=== PATIENT | female | born 1980 | race Caucasian/White ===

== ENCOUNTER 2017-05-21 10:11 | Inpatient (IN) | payer OTHER ==
[~2017-05-21] VITALS: Ht 149.9 cm; Wt 70.8 kg
[2017-05-21] MEDS ORDERED: RINGERS SOLUTION,LACTATED 1,000 ML IV PRN (10:28)
[2017-05-21] MEDS ORDERED: CITRIC ACID/SODIUM CITRATE 30 ML SOLUTION UDCUP PO PRN (10:30)
[2017-05-21] MEDS ORDERED: METOCLOPRAMIDE HCL 5 MG/ML 2 ML VIAL IVP PRN (10:30)
[2017-05-21] MEDS ORDERED: FentaNYL CITRATE-PF 100 MCG/2 ML VIAL IVP PRN (10:30)
[2017-05-21] MEDS ORDERED: PREN1TAB80 PO (10:32)
[2017-05-21 10:58] VITALS: BP 130/86
[2017-05-21 11:45] LABS: BASOPHILS # (AUTO) 0.03 K/uL (0.00-0.20); BASOPHILS % (AUTO) 0.3 % (0.0-2.0); EOSINOPHILS # (AUTO) 0.13 K/uL (0.00-0.70); EOSINOPHILS % (AUTO) 1.33 % (1.0-6.0); HEMATOCRIT 36.7 % (36-46); HEMOGLOBIN 12.7 g/dL (12.0-16.0); LYMPHOCYTES # (AUTO) 1.6 K/uL (1.0-4.8); LYMPHOCYTES % (AUTO) 16.4 % (22.0-44.0); MEAN CORPUSCULAR HEMOGLOBIN 27.6 pg (26.0-34.0); MEAN CORPUSCULAR HGB CONC 34.5 G/dL (31.0-37.0); MEAN CORPUSCULAR VOLUME 80 fL (80-100); MONOCYTES # (AUTO) 0.7 K/uL (0.1-1.0); MONOCYTES % (AUTO) 6.7 % (2.0-9.0); NEUTROPHILS # (AUTO) 7.5 K/uL (1.8-7.7); NEUTROPHILS % (AUTO) 75.3 % (40.0-70.0); RED BLOOD CELL COUNT(AUTO) 4.59 MIL/uL (4.00-5.20); RED CELL DISTRIBUTION WIDTH 13.6 % (11.5-14.5)
[2017-05-21] MEDS ORDERED: INFLUENZA VIRUS VACCINE QVS 2017-18 (3YR+)/PF 60 MCG/0.5 ML SYRINGE IM ONE (11:45)
[2017-05-21] MEDS ORDERED: MISOPROSTOL 25 MCG TABLET VG ONE (12:00)
[2017-05-21] MEDS ORDERED: OXYTOCIN 30 UNITS/LACT RINGERS 500 ML IV PRN (12:00)
[2017-05-21] MEDS: RINGERS SOLUTION,LACTATED 1,000 ML IV SCH ×2 (12:12→20:03)
[2017-05-21 12:38] LABS: PLATELET COUNT (AUTO)-OB 39 K/uL (150-450)
[2017-05-21 12:59] LABS: HEMATOCRIT 36.3 % (36-46); HEMOGLOBIN 12.4 g/dL (12.0-16.0); MEAN CORPUSCULAR HEMOGLOBIN 27.9 pg (26.0-34.0); MEAN CORPUSCULAR HGB CONC 34.1 G/dL (31.0-37.0); MEAN CORPUSCULAR VOLUME 82 fL (80-100); RED BLOOD CELL COUNT(AUTO) 4.43 MIL/uL (4.00-5.20)
[2017-05-21 13:06] LABS: PLATELET COUNT (AUTO)-OB 41 K/uL (150-450)
[2017-05-21] MEDS ORDERED: METHYLPREDNISOLONE SOD SUCC IV SCH (14:15)
[2017-05-21] MEDS ORDERED: SODIUM CHLORIDE 0.9% IV SCH (14:15)
[2017-05-21] MEDS ORDERED: DEXAMETHASONE 4 MG TABLET PO ONE (15:00)
[2017-05-21 16:58] LABS: ANION GAP 10 mmol/L (8-16); CALCIUM, TOTAL 8.3 mg/dL (8.8-10.5); CARBON DIOXIDE 22 mmol/L (22-29); CHLORIDE 102 mmol/L (98-107); CREATININE 0.51 mg/dL (0.60-1.30); GLOMERULAR FILTR. RATE CALC > 60 mL/min (>60); GLUCOSE,RANDOM 73 mg/dL (70-110); POTASSIUM 4.4 mmol/L (3.5-5.1); SODIUM SERUM 134 mmol/L (136-145); UREA NITROGEN, BLOOD 10 mg/dL (7-18)
[2017-05-21 17:05] LABS: ALANINE AMINOTRANSFERASE 670 U/L (12-78); ALBUMIN 1.9 g/dL (3.4-5.0); ALKALINE PHOSPHATASE 285 U/L (46-116); ASPARTATE AMINOTRANSFERASE 402 U/L (15-37); BILIRUBIN,TOTAL 2.7 mg/dL (0.1-1.0); TOTAL PROTEIN, SERUM 6.4 g/dL (6.4-8.2); URIC ACID 3.9 mg/dL (2.6-7.2)
[2017-05-21 19:00] LABS: BASOPHILS % (AUTO) 0.2 % (0.0-2.0); EOSINOPHILS % (AUTO) 0.4 % (1.0-6.0); HEMATOCRIT 41.2 % (36-46); HEMOGLOBIN 13.9 g/dL (12.0-16.0); LYMPHOCYTES # (AUTO) 1.2 K/uL (1.0-4.8); LYMPHOCYTES % (AUTO) 11.9 % (22.0-44.0); MEAN CORPUSCULAR HEMOGLOBIN 27.8 pg (26.0-34.0); MEAN CORPUSCULAR HGB CONC 33.7 G/dL (31.0-37.0); MEAN CORPUSCULAR VOLUME 82 fL (80-100); MONOCYTES # (AUTO) 0.2 K/uL (0.1-1.0); NEUTROPHILS # (AUTO) 8.8 K/uL (1.8-7.7); RED CELL DISTRIBUTION WIDTH 13.4 % (11.5-14.5)
[2017-05-21 19:08] LABS: PLATELET COUNT (AUTO)-OB 49 K/uL (150-450)
[2017-05-21 19:09] LABS: NEUTROPHILS % (AUTO) 85.5 % (40.0-70.0)
[2017-05-21 19:10] LABS: ANION GAP 12 mmol/L (8-16); CALCIUM, TOTAL 8.8 mg/dL (8.8-10.5); CARBON DIOXIDE 21 mmol/L (22-29); CHLORIDE 102 mmol/L (98-107); CREATININE 0.51 mg/dL (0.60-1.30); GLOMERULAR FILTR. RATE CALC > 60 mL/min (>60); GLUCOSE,RANDOM 77 mg/dL (70-110); POTASSIUM 4.6 mmol/L (3.5-5.1); SODIUM SERUM 135 mmol/L (136-145); UREA NITROGEN, BLOOD 10 mg/dL (7-18)
[2017-05-21 19:16] LABS: ALANINE AMINOTRANSFERASE 712 U/L (12-78); ALKALINE PHOSPHATASE 313 U/L (46-116); ASPARTATE AMINOTRANSFERASE 397 U/L (15-37); BILIRUBIN,TOTAL 3.1 mg/dL (0.1-1.0)
[2017-05-21] MEDS ORDERED: MAGNESIUM SULFATE 500 ML IV SCH (19:35)
[2017-05-21] MEDS ORDERED: CALCIUM GLUCONATE 100 MG/ML 10 ML IVP PRN (19:45)
[2017-05-21] MEDS ORDERED: MAGNESIUM SULFATE 4 GM/WATER 100 ML IV ONE (19:45)
[2017-05-21] MEDS ORDERED: OXYGEN THERAPY IH SCH (20:00)
[2017-05-21] MEDS ORDERED: BUTORPHANOL TARTRATE 2 MG/ML VIAL IVP PRN (20:15)
[2017-05-21] MEDS: NALBUPHINE HCL 10 MG/ML VIAL IVP PRN ×2 (20:43→23:44)
[2017-05-21 20:49] LABS: APPEARANCE,URINE CLEAR (CLEAR); GLUCOSE, URINE (UA) NEGATIVE (NEGATIVE); KETONES,URINE 15 mg/dL (NEGATIVE); LEUKOCYTE ESTERASE ,URINE NEGATIVE (NEGATIVE); NITRATE,URINE NEGATIVE (NEGATIVE); OCCULT BLOOD,URINE MODERATE (NEGATIVE); PH,URINE 6.5 (5.0-8.0); PROTEIN,URINE SEE CONFIRM (NEGATIVE)
[2017-05-21 20:54] LABS: BILIRUBIN,URINE PRELIM. POSITIVE (NEGATIVE)
[2017-05-21 21:35] LABS: SULFOSALICYLIC ACID,URINE 2+ (Negative)
[2017-05-21 21:36] LABS: INR 0.8 (0.9-1.1); PROTHROMBIN TIME 8.9 SEC (9.4-11.6)
[2017-05-21 21:36] LABS: SQUAMOUS EPITHELIAL CELL,UR Few /LPF (None Seen)
[2017-05-21 21:37] LABS: BACTERIA,URINE Few /HPF (None Seen)
[2017-05-22] MEDS ORDERED: LIDOCAINE HCL/PF 1% 30 ML VIAL INJ PRN (00:15)
[2017-05-22] MEDS ORDERED: MISOPROSTOL 100 MCG TABLET ONE (01:52)
[2017-05-22] MEDS ORDERED: RINGERS SOLUTION,LACTATED 1,000 ML IV ONE (02:33)
[2017-05-22] MEDS ORDERED: MEASLES/MUMPS/RUBELLA VACCINE, LIVE 0.5 ML/VIAL SQ ONE (02:45)
[2017-05-22] MEDS ORDERED: BENZOCAINE 20%/MENTHOL 56 GM SPRAY CANISTER TP PRN (02:45)
[2017-05-22] MEDS ORDERED: GLYCERIN/WITCH HAZEL LEAF 40 PADS JAR TP PRN (02:45)
[2017-05-22] MEDS ORDERED: LANOLIN 7 GM OINTMENT TP PRN (02:45)
[2017-05-22] MEDS ORDERED: IBUPROFEN 600 MG TABLET PO PRN (02:45)
[2017-05-22] MEDS ORDERED: OxyCODONE HCL/ACETAMINOPHEN 5-325 MG TABLET PO PRN ×2 (02:45)
[2017-05-22] MEDS ORDERED: OXYTOCIN 20 UNITS/LACT RINGERS 1,000 ML IV ONE (03:00)
[2017-05-22] MEDS ORDERED: CALCIUM GLUCONATE 100 MG/ML 10 ML IVP PRN (05:45)
[2017-05-22] MEDS ORDERED: MAGNESIUM SULFATE 500 ML IV SCH (06:20)
[2017-05-22 06:38] LABS: ALANINE AMINOTRANSFERASE 464 U/L (12-78); ALBUMIN 1.7 g/dL (3.4-5.0); ALKALINE PHOSPHATASE 251 U/L (46-116); ANION GAP 10 mmol/L (8-16); ASPARTATE AMINOTRANSFERASE 204 U/L (15-37); CALCIUM, TOTAL 7.7 mg/dL (8.8-10.5); CARBON DIOXIDE 21 mmol/L (22-29); CHLORIDE 102 mmol/L (98-107); CREATININE 0.64 mg/dL (0.60-1.30); GLOMERULAR FILTR. RATE CALC > 60 mL/min (>60); GLUCOSE,RANDOM 173 mg/dL (70-110); POTASSIUM 4.1 mmol/L (3.5-5.1); SODIUM SERUM 133 mmol/L (136-145); TOTAL PROTEIN, SERUM 5.6 g/dL (6.4-8.2); UREA NITROGEN, BLOOD 12 mg/dL (7-18)
[2017-05-22 06:49] LABS: EOSINOPHILS % (AUTO) 0 % (1.0-6.0); HEMATOCRIT 35.7 % (36-46); LYMPHOCYTES # (AUTO) 1.7 K/uL (1.0-4.8); LYMPHOCYTES % (AUTO) 7.7 % (22.0-44.0); MEAN CORPUSCULAR HEMOGLOBIN 27.8 pg (26.0-34.0); MEAN CORPUSCULAR HGB CONC 33.6 G/dL (31.0-37.0); MEAN CORPUSCULAR VOLUME 83 fL (80-100); MONOCYTES # (AUTO) 0.5 K/uL (0.1-1.0); MONOCYTES % (AUTO) 2.5 % (2.0-9.0); NEUTROPHILS # (AUTO) 19.7 K/uL (1.8-7.7)
[2017-05-22 06:54] LABS: NEUTROPHILS % (AUTO) 89.8 % (40.0-70.0); PLATELET COUNT (AUTO)-OB 80 K/uL (150-450)
[2017-05-22] MEDS: MAGNESIUM HYDROXIDE SUSPENSION 30 ML UDCUP PO SCH ×2 (15:29→21:07)
[2017-05-23] MEDS: MAGNESIUM HYDROXIDE SUSPENSION 30 ML UDCUP PO SCH (08:28)
[2017-05-23 10:20] LABS: BASOPHILS # (AUTO) 0.05 K/uL (0.00-0.20); BASOPHILS % (AUTO) 0.3 % (0.0-2.0); EOSINOPHILS # (AUTO) 0.03 K/uL (0.00-0.70); EOSINOPHILS % (AUTO) 0.14 % (1.0-6.0); HEMATOCRIT 31.9 % (36-46); HEMOGLOBIN 10.5 g/dL (12.0-16.0); LYMPHOCYTES # (AUTO) 3.5 K/uL (1.0-4.8); LYMPHOCYTES % (AUTO) 18.2 % (22.0-44.0); MEAN CORPUSCULAR HEMOGLOBIN 27.7 pg (26.0-34.0); MEAN CORPUSCULAR VOLUME 84 fL (80-100); MONOCYTES # (AUTO) 0.6 K/uL (0.1-1.0); MONOCYTES % (AUTO) 3.3 % (2.0-9.0); NEUTROPHILS % (AUTO) 78.1 % (40.0-70.0); PLATELET COUNT (AUTO)-OB 143 K/uL (150-450); RED CELL DISTRIBUTION WIDTH 14.5 % (11.5-14.5)
[2017-05-23 10:33] LABS: ANION GAP 6 mmol/L (8-16); CALCIUM, TOTAL 8.3 mg/dL (8.8-10.5); CARBON DIOXIDE 29 mmol/L (22-29); CHLORIDE 105 mmol/L (98-107); CREATININE 0.64 mg/dL (0.60-1.30); GLOMERULAR FILTR. RATE CALC > 60 mL/min (>60); GLUCOSE,RANDOM 128 mg/dL (70-110); POTASSIUM 4.4 mmol/L (3.5-5.1); SODIUM SERUM 140 mmol/L (136-145); UREA NITROGEN, BLOOD 14 mg/dL (7-18)
[2017-05-23 10:40] LABS: ALANINE AMINOTRANSFERASE 291 U/L (12-78); ALBUMIN 1.7 g/dL (3.4-5.0); ALKALINE PHOSPHATASE 211 U/L (46-116); ASPARTATE AMINOTRANSFERASE 72 U/L (15-37); BILIRUBIN,TOTAL 0.7 mg/dL (0.1-1.0); TOTAL PROTEIN, SERUM 5.8 g/dL (6.4-8.2); URIC ACID 4.9 mg/dL (2.6-7.2)
[2017-05-23] MEDS ORDERED: IBUP-2070 PO (13:52)
== END 2017-05-23 14:50 | disposition home or self-care (01) | DRG 775 ==
LOC: OBSVTOIN 10:11 → EDBD 10:11 → 4S 10:11
PROVIDERS: ADMIT Obstetrics & Gynecology; ATTEND Obstetrics & Gynecology
PROC: 10E0XZZ Delivery of Products of Conception, External Approach (ICD-10-PCS; principal; 2017-05-22)
PROC: 0KQM0ZZ Repair Perineum Muscle, Open Approach (ICD-10-PCS; 2017-05-22)
DX: O48.0 Post-term pregnancy (principal); D69.6 Thrombocytopenia, unspecified; O99.12 Other diseases of the blood and blood-forming organs and certain disorders involving the immune mechanism complicating childbirth; Z37.0 Single live birth; O14.24 HELLP syndrome, complicating childbirth; O09.513 Supervision of elderly primigravida, third trimester; Z3A.40 40 weeks gestation of pregnancy; O70.1 Second degree perineal laceration during delivery
CPT/HCPCS: 83735; 84550; 86850; 86900; 86901; 90471; J0595; J2300; J2590; J3475; J3490; J7120; J8540